=== PATIENT | female | born 1945 | race American Indian/Alaskan Native ===

== ENCOUNTER 2018-03-28 09:44 | Outpatient (CLI) | payer MEDICARE ==
--- NOTE | 2018-04-04 13:01 | PET Report ---
PET SB TO MT SUBSEQUENT: HISTORY: Ovarian cancer. TECHNIQUE: 13.3 millicuries F-18 FDG was administered intravenously. Noncontrast CT images and PET images were obtained from the skull base to the proximal thighs. Fused images were reviewed on a workstation. The patient's blood glucose level measured 111. COMPARISON: 04/06/16. 12/23/15. FINDINGS: BRAIN: physiologic FDG uptake in the imaged brain. NECK: physiologic FDG uptake. MEDIASTINUM: physiologic FDG uptake. LUNGS: physiologic FDG uptake. PLEURA/PERICARDIUM: physiologic FDG uptake. THORACIC LYMPH NODES: physiologic FDG uptake. HEPATOBILIARY: physiologic FDG uptake. Mean liver SUV measures 4.3 as opposed to 3.4 on the previous exam. PANCREAS: physiologic FDG uptake. SPLEEN: physiologic FDG uptake. ADRENAL GLANDS: physiologic FDG uptake. KIDNEYS/RENAL COLLECTING SYSTEMS: physiologic FDG uptake. BOWEL/MESENTERY: physiologic FDG uptake. There is moderate activity in the distal small bowel loops and colon but no obvious mass on the CT images. PELVIC VISCERA: physiologic FDG uptake. Hysterectomy changes ABDOMINAL/PELVIC LYMPH NODES: physiologic FDG uptake. MUSCULOSKELETAL: physiologic FDG uptake. IMPRESSION: Negative PET/CT. No evidence for disease recurrence or metastasis. Stable findings since 04/06/16 exam.
== END 2018-03-28 09:45 | disposition home or self-care (01) ==
LOC: PET 09:44
PROVIDERS: ATTEND Internal Medicine Hematology & Oncology
DX: C56.9 Malignant neoplasm of unspecified ovary (principal); C56.1 Malignant neoplasm of right ovary; I10 Essential (primary) hypertension; E78.00 Pure hypercholesterolemia, unspecified; K21.9 Gastro-esophageal reflux disease without esophagitis; R79.89 Other specified abnormal findings of blood chemistry
CPT/HCPCS: 78815; 82962; A9552

== ENCOUNTER 2018-12-12 07:50 | Outpatient (CLI) | payer MEDICARE ==
--- NOTE | 2018-12-12 13:25 | PET Report ---
PET/CT:12/12/18 07:50:00 CLINICAL: Ovarian cancer restaging. RADIOPHARMACEUTICAL: 14.419mCi F18-FDG. COMPARISON: 03/28/18 PET/CT TECHNIQUE- Following intravenous injection of F-18 FDG and an approximately 60 minute uptake period, CT and PET images from the mid skull to the upper thighs were acquired with the patient in the fasted state. No contrast was administered. The CT protocol used for this PET CT study is designed for attenuation correction and anatomic localization of PET abnormalities. This ui ux engineer CT is not desired to produce and cannot replace, fpklc-uq-ecx-art diagnostic CT scans with specific imaging protocols for different body parts and indications. Plasma glucose at the time of this test: 113g/dl. The standardized uptake values (SUV) are normalized to patient body weight and indicate the highest activity concentration (SUV max) in a given disease site. FINDINGS: Brain--Physiologic FDG uptake in the visualized regions of the brain. Neck--Physiologic FDG uptake in mucosal structures. No mass or lymphadenopathy. Chest--Physiologic FDG uptake in mediastinal blood pool and myocardium. Lungs--No abnormal uptake. No pulmonary nodule or mass. Pleura/pericardium--No abnormal uptake. Thoracic nodes--No abnormal uptake. Hepatobiliary--No abnormal uptake. Liver background SUV mean, as a reference for comparing FDG studies, is 3.4 compared to 3.9 on the last exam. No liver mass. Spleen--No abnormal uptake. Pancreas--No abnormal uptake. Adrenal Glands--No abnormal uptake. Kidneys/Ureters/Bladder--No abnormal uptake. Abdominopelvic Nodes--No abnormal uptake. Bowel/Peritoneum/Mesentery--No abnormal uptake. Physiologic uptake and small and large bowel. Pelvic organs--No abnormal uptake. Status post total abdominal hysterectomy. Bones/Soft Tissues--No abnormal uptake. IMPRESSION- Negative study with no evidence of disease recurrence or metastasis.
== END 2018-12-12 07:51 | disposition home or self-care (01) ==
LOC: PET 07:50
PROVIDERS: ATTEND Internal Medicine Hematology & Oncology
DX: C56.1 Malignant neoplasm of right ovary (principal); E78.00 Pure hypercholesterolemia, unspecified; I10 Essential (primary) hypertension; K21.9 Gastro-esophageal reflux disease without esophagitis; M19.90 Unspecified osteoarthritis, unspecified site; Z90.710 Acquired absence of both cervix and uterus
CPT/HCPCS: 78815; 82962; A9552

== ENCOUNTER 2019-09-25 11:00 | Outpatient (CLI) | payer MEDICARE ==
--- NOTE | 2019-09-25 13:08 | Vascular Lab Report ---
DUPLEX DOPPLER RIGHT LOWER EXTREMITY VEINS INDICATION: PAIN AND SWELLING TO RIGHT LEG FINDINGS: There is no thrombus within the deep veins of the right lower extremity from the common femoral to th e calf veins. There is normal compression and augmentation on spectral analysis. There appears to be a small popliteal cyst in the right knee. IMPRESSION: No sonographic evidence for DVT in the right lower extremity. Signer Name: Bertram Rivera MD Signed: 09/25/2019 1:03 PM Workstation Name: [id number]
--- NOTE | 2019-09-26 06:32 | PET Report ---
PET sb to mt subsequent INDICATION / CLINICAL INFORMATION: Restaging ovarian cancer. TRACER: F-18 FDG 15.87 mCi IV injection via the left hand at 12:31 PM on 09/25/2019. Blood glucose is 101 mg/ dL. TECHNIQUE: Following injection of the above tracer and appropriate delay, PET imaging was performed from the [facility] base to the upper thighs. CT imaging was performed the same time for the purposes of anatomic loca lization. All CT scans at this location are performed using CT dose reduction for ALARA by means of a utomated exposure control. COMPARISON: PET CT examination 12/12/2018. FINDINGS: HEAD/NECK: Left mandibular uptake with maximal SUV of 7.5 indicative of dental disease. No suspicious uptake. CHEST: No suspicious uptake. ABDOMEN/PELVIS: No suspicious uptake. UPPER LEGS: No suspicious uptake. INCIDENTAL CT FINDINGS: Low density central lesion at the thyroid is increase in size from 2.2-2.5 cm. IMPRESSION: 1. Negative for local recurrence or distant metastatic disease. 2. Left mandibular dental disease. 3. Enlarging cystic lesion at the central thyroid. This could be better evaluated with ultrasound. Signer Name: Van Payan MD Signed: 09/26/2019 6:27 AM Workstation Name: [email or web address]
== END 2019-09-25 11:01 | disposition home or self-care (01) ==
LOC: VAS 11:00
PROVIDERS: ATTEND Internal Medicine Hematology & Oncology
DX: C56.1 Malignant neoplasm of right ovary (principal); K08.9 Disorder of teeth and supporting structures, unspecified; E04.1 Nontoxic single thyroid nodule; M79.661 Pain in right lower leg; R22.41 Localized swelling, mass and lump, right lower limb; E78.00 Pure hypercholesterolemia, unspecified; I10 Essential (primary) hypertension; K21.9 Gastro-esophageal reflux disease without esophagitis; Z90.710 Acquired absence of both cervix and uterus; M19.90 Unspecified osteoarthritis, unspecified site
CPT/HCPCS: 78815; 82962; 93971; A9552

== ENCOUNTER 2019-11-10 08:40 | Outpatient (CLI) | payer MEDICARE ==
--- NOTE | 2019-11-10 15:07 | Ultrasound Report ---
Thyroid ultrasound. 11/10/2019. HISTORY: Thyroid nodule. FINDINGS: Right lobe measures 3.6 x 1.2 x 1.4 cm. Left lobe measures 3 x 1 x 1.1 cm. A mid pole cyst measures 7 mm. A solid nodule at the midline is either in or adjacent to the isthmus. This measures 1.8 x 3.8 x 1.2 cm in demonstrate increased vascularity. IMPRESSION: Solid nodule at the isthmus versus lymph node is known to be enlarging. Fine-needle aspir ation or core biopsy is recommended for further evaluation. Signer Name: Van Payan MD Signed: 11/10/2019 3:02 PM Workstation Name: [id number]
== END 2019-11-10 08:41 | disposition home or self-care (01) ==
LOC: US 08:40
PROVIDERS: ATTEND Internal Medicine Hematology & Oncology
DX: E04.1 Nontoxic single thyroid nodule (principal); C56.1 Malignant neoplasm of right ovary
CPT/HCPCS: 76536

== ENCOUNTER 2020-07-15 11:31 | Outpatient (CLI) | payer MEDICARE ==
[2020-07-15 12:29] LABS: Blood Urea Nitrogen 7 mg/dL (7-17)
--- NOTE | 2020-07-15 15:20 | Cat Scan Report ---
CT ABDOMEN AND PELVIS WITH CONTRAST INDICATION / CLINICAL INFORMATION: R10.84Generalized abdominal pain. TECHNIQUE: Axial CT images were obtained through the abdomen and pelvis after 100 cc of Omnipaque 300 IV contras t. Sagittal and coronal reformatted images. All CT scans at this location are performed using CT dose reduction for ALARA by means of automated exposure control. COMPARISON: None available. FINDINGS: LOWER CHEST: No significant abnormality. LIVER: No significant abnormality. GALLBLADDER: There are a few tiny gallstones in the neck of the gallbladder. No biliary dilatation or inflammation. BILE DUCTS: No significant abnormality. PANCREAS: No significant abnormality. SPLEEN: No significant abnormality. ADRENALS: No significant abnormality. RIGHT KIDNEY and URETER: There is a new 1.7 cm cyst near mid pole. The right kidney and collecting sy stem are unremarkable otherwise. LEFT KIDNEY and URETER: Stable 2.1 cm cyst near mid pole. The left kidney and collecting system are u nremarkable otherwise. STOMACH and SMALL BOWEL: No significant abnormality. COLON: There is moderate fecal matter throughout the length of the colon and rectum. No obstruction o r inflammatory changes. APPENDIX: Not identified. PERITONEUM: No free fluid. No free air. No fluid collection. LYMPH NODES: No significant adenopathy. AORTA and ARTERIES: No significant abnormality. IVC and VEINS: No significant abnormality. URINARY BLADDER: No significant abnormality. REPRODUCTIVE ORGANS: Hysterectomy changes. The large cystic mass in the pelvis has been surgically re moved since the previous exam. No suspicious pelvic mass or cyst on today's exam. ADDITIONAL FINDINGS: None. SKELETAL SYSTEM: Mild thoracolumbar spondylosis. No fracture or suspicious bony lesion. IMPRESSION: No acute inflammatory process is appreciated. Cholelithiasis but no evidence for acute cholecystitis. Mild constipation. Bilateral renal cysts. Hysterectomy and appendectomy. Signer Name: Vikas Flores Jr, MD Signed: 07/15/2020 3:16 PM Workstation Name: [id number]
== END 2020-07-15 11:32 | disposition home or self-care (01) ==
LOC: CT 11:31
PROVIDERS: ATTEND Obstetrics & Gynecology Gynecologic Oncology
DX: N28.1 Cyst of kidney, acquired (principal); K80.80 Other cholelithiasis without obstruction; K57.30 Diverticulosis of large intestine without perforation or abscess without bleeding; M47.815 Spondylosis without myelopathy or radiculopathy, thoracolumbar region; Z90.710 Acquired absence of both cervix and uterus
CPT/HCPCS: 36415; 74177; 82565; 84520; Q9967

== ENCOUNTER 2021-09-20 09:38 | Outpatient (CLI) | payer MEDICARE ==
--- NOTE | 2021-09-20 11:11 | Magnetic Resonance Report ---
MR lumbar spine wo con INDICATION / CLINICAL INFORMATION: 76 years Female; BACK PAIN--HX OVARIAN CA. TECHNIQUE: Multisequence, multiplanar images of the lumbar spine were obtained. COMPARISON: None available. FINDINGS: ALIGNMENT: There are notable degenerative disc changes at L5-S1 with minimal anterolisthesis. There i s no lumbar scoliosis. VERTEBRAE:There are are degenerative endplate changes at L3-4 with small Schmorl's nodes and slight e agustin. This mild deformity of the superior endplate of T12 without significant edema. VISUALIZED SPINAL CORD: The motion degrades image quality. However, the distal spinal cord appears to demonstrate appropriate signal intensity and terminates at L1. [id number] ANALYSIS: L1-2: No significant abnormality. L2-3: Some minimal a disc bulge and mild ligamentum flavum hypertrophy without significant central st enosis at. There is minimal right foraminal narrowing. L3-4: The broad-based disc bulge and facet joint hypertrophy contributes to mild to moderate spinal s tenosis and left foraminal narrowing. Mild narrowing is seen on the right. L4-5: There is a minimal disc bulge without central spinal stenosis. There is slight foraminal narrow ing bilaterally. L5-S1: There is a right hemilaminectomy at defect with findings compatible with mild fibrosis within the right lateral recess at. There is component of residual spondylosis with mild to moderate foramin al narrowing, greater on the right. However, there is no evidence of recurrent central disc protrusio n. PARASPINAL SOFT TISSUES: No significant abnormality. ADDITIONAL FINDINGS: No epidural collections are identified. No edematous lesions are seen involving visualized lumbar spine. IMPRESSION 1. There are postsurgical and degenerative the changes at L5-S1 as described. 2. There are multilevel degenerative the changes involving remaining visualized segments including mi ld to moderate spinal stenosis and left foraminal narrowing at L3-4. The study was specified as stat and dictated emergently at 10:06 AM Central standard time. Signer Name: Alin Tamayo MD Signed: 09/20/2021 11:07 AM Workstation Name: [id number]
--- NOTE | 2021-09-20 11:31 | Magnetic Resonance Report ---
. MR cervical spine wo con INDICATION / CLINICAL INFORMATION: 76 years Female; BACK / NECK PAIN--HX OVARIAN CA. TECHNIQUE: Multisequence, multiplanar images of the cervical spine were obtained. COMPARISON: None available. FINDINGS: CRANIOCERVICAL JUNCTION:No significant abnormality. ALIGNMENT: No significant abnormality. VERTEBRAE:Grossly normal marrow signal and vertebral body height for age. VISUALIZED SPINAL CORD: No significant abnormality. INTERVERTEBRAL DISCS: Multilevel disc desiccation noted. [id number] ANALYSIS: C2-3: Moderate foraminal narrowing on the left from facet and mild uncinate hypertrophy. Similar find ings to lesser degree on the right. Mild disc bulge and small posterocentral disc protrusion. C3-4: Mild to moderate disc bulge and small posterocentral disc protrusion. Moderate foraminal narrow ing on the right from facet and uncinate hypertrophy. Mild on the left. Mild canal narrowing. C4-5: Broad-based posterior central disc protrusion. Posterior ligamentum flavum hypertrophy. Mild to moderate canal narrowing seen without cord impingement. Moderate to marked foraminal narrowing on th e left from uncinate and facet hypertrophy. Mild on the right. Findings could affect the left C5 nerv e. C5-6: Mild disc bulge. Moderate to marked foraminal narrowing on the right moderate on the left from uncinate facet hypertrophy. Findings could affect the C6 nerves. C6-7: Mild disc bulge and facet hypertrophy. C7-T1: Moderate foraminal narrowing on the right from facet and uncinate hypertrophy. Moderate to mar ked noted on the left. Findings may affect the C8 nerves. PARASPINAL SOFT TISSUES: No significant abnormality. ADDITIONAL FINDINGS: None. IMPRESSION: 1. Degenerative changes of the cervical spine as described above. Most marked findings appear to be a t C4-5, C5-6, and C7-T1. Please correlate with dermatomal distribution of patient's symptoms, if pres ent. Signer Name: Isiah Bee MD, III Signed: 09/20/2021 11:26 AM Workstation Name: [email or web address]
== END 2021-09-20 09:39 | disposition home or self-care (01) ==
LOC: MRI 09:38
DX: M50.11 Cervical disc disorder with radiculopathy, high cervical region (principal); M50.123 Cervical disc disorder at C6-C7 level with radiculopathy; M50.122 Cervical disc disorder at C5-C6 level with radiculopathy; M50.121 Cervical disc disorder at C4-C5 level with radiculopathy; M48.02 Spinal stenosis, cervical region; M46.1 Sacroiliitis, not elsewhere classified; M51.16 Intervertebral disc disorders with radiculopathy, lumbar region; M48.061 Spinal stenosis, lumbar region without neurogenic claudication; M47.22 Other spondylosis with radiculopathy, cervical region
CPT/HCPCS: 72141; 72148